=== PATIENT | male | born 1995 | race Caucasian/White ===

== ENCOUNTER 2019-10-14 14:01 | Emergency (ER) | payer OTHER, BC, SELFPAY ==
--- NOTE | 2019-10-14 14:12 | ED.URI ---
HPI - URI/Sore Throat General Chief Complaint: Upper Respiratory Infection Stated Complaint: upper respiratory/SOB/Cough Time Seen by Provider: 10/14/19 14:12 Source: patient and RN notes reviewed History of Present Illness HPI Narrative: Patient is a 24-year-old male that presents the urgent care with complaints of upper respiratory symptoms such as sinus congestion, nonproductive cough, intermittent wheezing and shortness of breath. Patient states it started on Friday and it is worse throughout the night. Patient denies any fever or sore throat. Has been using [place] without much relief. No other acute complaints. No acute distress noted. Patient had a plan of care. Related Data Home Medications Medication Instructions Recorded Confirmed fluoxetine 20 mg tablet 20 mg PO DAILY 07/27/19 10/14/19 Allergies Allergy/AdvReac Type Severity Reaction Status Date / Time No Known Allergies Allergy Verified 10/14/19 14:17 Review of Systems Review of Systems: Narrative: CONSTITUTIONAL: Denies fever, chills, or sweats. EYES: Denies visual changes, redness, or discharge. ENT: Denies rhinorrhea, congestion, sore throat, or otalgia. reports of post-nasal drainage CARDIOVASCULAR: Denies chest pain, palpitations, or edema. RESPIRATORY:reports of cough with wheezes and shortness of breath GASTROINTESTINAL: Denies abdominal pain, nausea, vomiting, or diarrhea. GENITOURINARY: Denies dysuria or hematuria. SKIN: Denies rash or itching. MUSCULOSKELETAL: Denies back pain, joint pain, or myalgia. NEUROLOGIC: Denies headache, numbness, or weakness. All other systems reviewed are negative, except as documented in HPI. PMFSH Social History Social History Smoking status: Current every day smoker Alcohol intake: never Comments At the time of my signature, I reviewed and agree with the nursing past medical, surgical, social, and family history. There is no relevant family history pertinent to the patient complaint. Exam Narrative: Exam Narrative: GENERAL: This is a well-nourished, well-developed patient, in no apparent distress. HEAD: normocephalic, atraumatic. EYES: PERRL. Sclera clear/white. Vision is grossly intact. EARS: External ears normal, auditory canals clear and without drainage, TMs normal without perforation. Hearing grossly intact. NOSE: External nose normal with no obvious nasal discharge, nares without redness, clear rhinorrhea. THROAT: Mucous membranes moist, posterior pharynx clear. Moderate postnasal drainage NECK: Neck supple, non-tender without lymphadenopathy CARDIOVASCULAR: Regular rate and rhythm without murmurs, gallops, or rubs. RESPIRATORY: mild inspiratory wheezes SKIN: warm, intact with no suspicious lesions or rash, good texture and turgor. NEURO: awake, alert, and oriented to person, place and time. There were no obvious focal neurologic abnormalities. EXTREMITIES: No clubbing, cyanosis, or edema. Course Vital Signs Vital signs: Vital Signs Temperature 89.9 F L 10/14/19 14:15 Pulse Rate 50 L 10/14/19 14:15 Respiratory Rate 16 10/14/19 14:15 Blood Pressure 126/55 L 10/14/19 14:15 Pulse Oximetry 100 10/14/19 14:15 Temperature 89.9 F L 10/14/19 14:15 Pulse Rate 50 L 10/14/19 14:15 Respiratory Rate 16 10/14/19 14:15 Blood Pressure 126/55 L 10/14/19 14:15 Pulse Oximetry 100 10/14/19 14:15 Reviewed MDM - URI/Sore Throat MDM Narrative Medical decision making narrative: Advised the patient to complete steroid regimen as prescribed. Use inhaler as needed for wheezing or shortness of breath. Use Tessalon Perles as needed for nonproductive cough. Use Tylenol/ibuprofen as needed. Increase fluids and rest. Use humidifier at night. Follow-up with PCP within 2 to 5 days or for worsening symptoms or failure to improve. Differential Diagnosis Differential diagnosis: Likely upper respiratory infection, otitis media, sinus
[2019-10-14 14:15] VITALS: BP 126/55; PULSE 50; RESP 16; TEMP 37.2; O2SAT 100
== END 2019-10-14 14:33 | disposition home or self-care (01) ==
PROVIDERS: Emergency Provider Nurse Practitioner Family
DX: J40 Bronchitis, not specified as acute or chronic (principal); F17.200 Nicotine dependence, unspecified, uncomplicated
CPT/HCPCS: 99213; G0463

== ENCOUNTER 2020-01-31 12:44 | Outpatient (CLI) | payer OTHER, BC, SELFPAY ==
--- NOTE | ~2020-01-31 | US_ITS ---
EXAMINATION:US venous doppler LE LT INDICATION:Left leg swelling TECHNIQUE: Multiple grayscale, color flow and Doppler images of the left lower extremity deep venous systems were obtained and reviewed. COMPARISON:No prior studies for comparison. FINDINGS: The common femoral, superficial femoral and popliteal veins demonstrate normal respiratory variation, augmentation and compressibility. Color flow is also seen within the posterior tibial, pe roneal, greater saphenous and profunda veins. IMPRESSION: 1: No lower extremity deep venous thrombosis. Reviewed, dictated and finalized at location A.
== END 2020-01-31 12:45 | disposition home or self-care (01) ==
PROVIDERS: PCP Family Medicine; Visit Provider Physician Assistant
DX: M79.89 Other specified soft tissue disorders (principal)
CPT/HCPCS: 93971

== ENCOUNTER 2020-02-07 08:20 | Outpatient (CLI) | payer OTHER, BC, SELFPAY ==
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
== END 2020-02-07 08:21 | disposition home or self-care (01) ==
PROVIDERS: PCP Family Medicine; Visit Provider Physician Assistant
DX: M19.072 Primary osteoarthritis, left ankle and foot (principal); S62.652A Nondisplaced fracture of middle phalanx of right middle finger, initial encounter for closed fracture; X58.XXXA Exposure to other specified factors, initial encounter
CPT/HCPCS: 73140; 73610; 73630

== ENCOUNTER 2020-02-09 17:21 | Outpatient (CLI) | payer OTHER, BC, SELFPAY ==
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
== END 2020-02-09 17:22 | disposition home or self-care (01) ==
PROVIDERS: PCP Family Medicine; Visit Provider Physician Assistant
DX: M79.672 Pain in left foot (principal); M79.89 Other specified soft tissue disorders
CPT/HCPCS: 73700

== ENCOUNTER 2020-03-20 12:35 | Outpatient (CLI) | payer OTHER, BC, SELFPAY ==
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
== END 2020-03-20 12:36 | disposition home or self-care (01) ==
PROVIDERS: PCP Family Medicine; Visit Provider Orthopaedic Surgery
DX: S80.00XA Contusion of unspecified knee, initial encounter (principal); X58.XXXA Exposure to other specified factors, initial encounter
CPT/HCPCS: 73562

== ENCOUNTER 2022-03-14 11:18 | Outpatient (CLI) | payer OTHER, BC, SELFPAY ==
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
== END 2022-03-14 11:19 | disposition home or self-care (01) ==
PROVIDERS: PCP Physician Assistant; Visit Provider Physician Assistant
DX: M25.511 Pain in right shoulder (principal); Z87.81 Personal history of (healed) traumatic fracture
CPT/HCPCS: 73000; 73030

== ENCOUNTER 2022-04-22 12:24 | Emergency (ER) | payer OTHER, BC, SELFPAY ==
--- NOTE | ~2022-04-22 | XR_ITS ---
EXAMINATION: XR hand LT min 3V INDICATION: Left hand pain TECHNIQUE: Three views of the left hand are obtained. COMPARISON: 11/11/2008 FINDINGS: There is no fracture, dislocation, or subluxation. The bones and joint spaces are normal. T here is dorsal soft tissue swelling of the hand overlying the metacarpals. IMPRESSION: 1. Dorsal soft tissue swelling of the hand without acute osseous abnormality. Reviewed, dictated and finalized at location A.
[2022-04-22 12:33] VITALS: BP 134/70; PULSE 59; RESP 18; TEMP 36.5; O2SAT 96
--- NOTE | 2022-04-22 12:41 | ED.UPPEXIN ---
HPI - Extremity Injury (Upper) General Chief Complaint: Extremity Injury, Upper Stated Complaint: lt hand injury Time Seen by Provider: 04/22/22 12:35 Source: patient Mode of arrival: ambulatory Limitations: no limitations History of Present Illness HPI narrative: Mr. Sadler is a 26-year-old male patient presenting to the clinic today with complaints of a left hand injury. He reports that he was helping carrying a washer yesterday and fell and is unsure if the washer fell on top of his hand or if his own body landed on top of his left hand. Reports hand swelling and pain. Related Data Home Medications Medication Instructions Recorded Confirmed dextroamphetamine-amphetamine ER 20 mg PO DAILY 04/22/22 04/22/22 20 mg 24hr capsule,extend release Allergies Allergy/AdvReac Type Severity Reaction Status Date / Time No Known Allergies Allergy Verified 04/22/22 12:37 Review of Systems Review of Systems: Pertinent positives per HPI. Patient denies any fever, chills, rash, headache, visual changes, dizziness, cough, runny nose, sore throat, shortness of breath, chest pain, palpitations, nausea, vomiting, diarrhea, constipation, abdominal pain, or any urinary issues. PMFSH Family History Family History Father Diabetes mellitus Hypertension Asthma Grandparent Hypertension Family history of osteoarthritis Family history of elevated blood lipids Family history of hypothyroidism Other Family history of arthritis Social History Social History Smoking status: Current every day smoker Alcohol intake: current Additional occupation/education comments: [employer] Gender identity (if verbalized by the patient): Male Comments At the time of my signature, I reviewed and agree with the nursing past medical, surgical, social, and family history. There is no relevant family history pertinent to the patient complaint. Exam Narrative: General: Well-developed, well nourished, in no apparent distress Head: Normocephalic, atraumatic. Cardio: Regular rate and rhythm, s1 and s2 normal, no murmur appreciated. Resp: Clear to auscultation bilaterally, no rhonchi, rales, wheezing or rubs. Musculoskeletal: No deformity, moderate soft tissue swelling to the left hand and fingers, tender to palpation over the knuckles and ulnar side of wrist, grossly normal range of motion, muscle strength strong and equal, peripheral pulse strong, no cyanosis, normal gait and station Course Course Emergency Course: Portions of this record may have been created with voice recognition software. Level of Care: Express Care Visit Vital Signs Vital signs: Vital signs reviewed MDM - Extremity Injury (Upper) MDM Narrative Medical decision making narrative: At the time of visit patient is resting comfortably on the exam table. X-ray was negative for any fracture or malalignment of the left hand. I suspect the patient has a soft tissue injury. Supportive measures were discussed and the patient voiced understanding of discharge instructions and agrees to the treatment plan. Differential Diagnosis Differential diagnosis: Likely sprain and strain of wrist, fracture of wrist, fracture of hand and other (Soft tissue injury) Imaging Data Radiologist's impression: [address] [address] XRay Report Signed Patient: Scott Valerio : 1995 MR#: [id number] Age/Sex: 26 / M Acct:[id number] Loc: [facility]? ? ADM Date: 04/22/22Attending Dr: Ordering Physician: Riley Rothman APRN Date of Service: 04/22/22 Procedure(s): XR hand LT min 3V Accession Number(s): [id number] cc: Riley Rothman APRN; UNKNOWN,DOCTOR~ EXAMINATION: XR hand LT min 3V INDICATION: Left hand pain TECHNIQUE: Three views of th
== END 2022-04-22 13:12 | disposition home or self-care (01) ==
PROVIDERS: Emergency Provider Nurse Practitioner Family
DX: S69.92XA Unspecified injury of left wrist, hand and finger(s), initial encounter (principal); W19.XXXA Unspecified fall, initial encounter; F17.200 Nicotine dependence, unspecified, uncomplicated; F90.9 Attention-deficit hyperactivity disorder, unspecified type
CPT/HCPCS: 73130; 99213; G0463

== ENCOUNTER 2023-01-12 19:04 | Emergency (ER) | payer OTHER, BC, SELFPAY ==
[2023-01-12 19:20] VITALS: BP 126/71; PULSE 89; RESP 16; TEMP 36.4; O2SAT 100
[2023-01-12] MEDS: LIDOCAINE HCL 1% LOCAL INJ 2 ML AMPUL 6 ML INFILTRATE (20:01)
--- NOTE | 2023-01-12 20:13 | ED.WOUNDLAC ---
HPI - Wound/Laceration General Chief Complaint: Animal Bite Stated Complaint: Dog Bite Rt Arm Time Seen by Provider: 01/12/23 19:47 Source: patient and RN notes reviewed Mode of arrival: ambulatory Limitations: no limitations History of Present Illness HPI narrative: Patient presents today complaining of a dog bite to his right forearm that was sustained at 630 this evening. He was breaking up 2 of his dogs fighting at home. Dogs are both up-to-date on shots. Patient is up-to-date on his tetanus vaccine. Currently rates his pain 11/01. Related Data Allergies Allergy/AdvReac Type Severity Reaction Status Date / Time No Known Allergies Allergy Verified 01/12/23 19:27 Review of Systems Review of Systems: CONSTITUTIONAL: Denies body aches, fever, chills, or sweats. EYES: Denies visual changes, redness, or discharge. ENT: Denies rhinorrhea, congestion, sore throat, or otalgia. CARDIOVASCULAR: Denies chest pain, palpitations, or edema. RESPIRATORY: Denies cough or dyspnea. GASTROINTESTINAL: Denies abdominal pain, nausea, vomiting, or diarrhea. GENITOURINARY: Denies dysuria or hematuria. SKIN: Denies rash, itching. + dog bite to right forearm MUSCULOSKELETAL: Denies back pain, joint pain, or myalgia. NEUROLOGIC: Denies headache, numbness, tingling, or weakness. PSYCH: Denies depression or anxiety. [facility] Family History Family History Father Diabetes mellitus Hypertension Asthma Grandparent Hypertension Family history of osteoarthritis Family history of elevated blood lipids Family history of hypothyroidism Other Family history of arthritis Social History Social History Smoking status: Current every day smoker Alcohol intake: current Lack of Transportation: No Lack of Food: Never True Current Housing: I Have Housing Concerned About Future Housing: No Difficulty Paying Gas/Electric Bills: No Difficulty Paying for Meds: No Currently Unemployed: No Education: High School Diploma/GED Difficulty w/ Childcare or Family Care: No Additional occupation/education comments: [employer] Gender identity (if verbalized by the patient): Male Comments At time of signature, I have reviewed and agree with nursing past medical, surgical, social and family history unless otherwise noted. Please see nursing chart for further information. There is no relevant family history pertinent to the presenting complaint Exam Narrative: GENERAL: Well-appearing, well-nourished, and in no acute distress. HEAD: Normocephalic, atraumatic. EYES: EOMI. No redness or drainage. Conjunctivae normal. ENT: Mucous membranes pink and moist. NECK: Normal AROM. CHEST: No respiratory distress. EXTREMITIES: 3 cm full-thickness linear laceration that is gaping approximately 1.5 cm to the ulnar aspect of the right forearm. He also has a puncture wound to the volar aspect of his right forearm. Distal sensation intact. Capillary refill normal. Radial pulse normal. Full range of motion of the elbow and wrist. SKIN: Warm, dry, no rash. Capillary refill normal. Normal skin turgor. NEURO: No focal deficits. Alert and oriented x3. Gait steady. PSYCH: Normal affect. No signs of depression or anxiety. Course Course Level of Care: Express Care Visit Vital Signs Vital signs: Vital Signs Temperature 97.6 F 01/12/23 19:20 Pulse Rate 89 01/12/23 19:20 Respiratory Rate 16 01/12/23 19:20 Blood Pressure 126/71 01/12/23 19:20 Pulse Oximetry 100 01/12/23 19:20 Oxygen Delivery Room Air 01/12/23 19:20 Temperature 97.6 F 01/12/23 19:20 Pulse Rate 89 01/12/23 19:20 Respiratory Rate 16 01/12/23 19:20 Blood Pressure 126/71 01/12/23 19:20 Pulse Oximetry 100 01/12/23 19:20 Oxygen Delivery Room Air 01/12/23 19:22 Reviewed. Pt has been instructed
--- NOTE | 2023-01-12 20:17 | PC.NURSE ---
WOUND REPAIRED PER HIGHWAY INSPECTOR, PT TOLERATED WELL. DRESSING IN PLACE. +PMS POST APPLICATION AND REPAIR. PT HAS FULL SENSATION, ROM +PMS.
== END 2023-01-12 20:20 | disposition home or self-care (01) ==
PROVIDERS: Emergency Provider Nurse Practitioner; PCP Family Medicine
DX: S51.811A Laceration without foreign body of right forearm, initial encounter (principal); W54.0XXA Bitten by dog, initial encounter; F17.200 Nicotine dependence, unspecified, uncomplicated
CPT/HCPCS: 12002; 99213; G0463

== ENCOUNTER 2023-02-08 17:24 | Emergency (ER) | payer OTHER, BC, SELFPAY ==
[2023-02-08 17:34] VITALS: BP 130/78; PULSE 76; RESP 18; TEMP 36.8; O2SAT 99
--- NOTE | 2023-02-08 18:02 | ED.SKABFB ---
HPI - Skin/Abscess/Foreign Bdy General Chief complaint: Skin/Abscess/Foreign Body Stated complaint: Fish Hook Stuck In Rt Hand Time Seen by Provider: 02/08/23 17:40 Source: patient Mode of arrival: ambulatory Limitations: no limitations History of Present Illness HPI narrative: 27-year-old male presented for complaint of fishhook in the right ring finger. He states he had about a 4 lb calabrese that started flipping causing the fish hook to embed into his finger. He was unable to get it out himself. He denies bleeding, numbness, tingling or weakness. UTD tetanus. Related Data Allergies Allergy/AdvReac Type Severity Reaction Status Date / Time No Known Allergies Allergy Verified 02/08/23 17:32 Review of Systems Review of Systems: CONSTITUTIONAL: Denies body aches, fever, chills, or sweats. EYES: Denies visual changes, redness, or discharge. ENT: Denies rhinorrhea, congestion CARDIOVASCULAR: Denies chest pain, palpitations, or edema. RESPIRATORY: Denies cough or dyspnea. GASTROINTESTINAL: Denies abdominal pain, nausea, vomiting, or diarrhea. SKIN: per HPI MUSCULOSKELETAL: Denies back pain, joint pain, or myalgia. NEUROLOGIC: Denies headache, numbness, tingling, or weakness. [facility] Past Medical History Medical History (Updated 02/08/23 @ 19:37 by Shona Sarmiento APRN) Attention-deficit hyperactivity disorder, unspecified type Family History Family History Father Diabetes mellitus Hypertension Asthma Grandparent Hypertension Family history of osteoarthritis Family history of elevated blood lipids Family history of hypothyroidism Other Family history of arthritis Social History Social History Smoking status: Current every day smoker Alcohol intake: current Lack of Transportation: No Lack of Food: Never True Current Housing: I Have Housing Concerned About Future Housing: No Difficulty Paying Gas/Electric Bills: No Difficulty Paying for Meds: No Currently Unemployed: No Education: High School Diploma/GED Difficulty w/ Childcare or Family Care: No Additional occupation/education comments: [employer] Gender identity (if verbalized by the patient): Male Comments At time of signature, I have reviewed and agree with nursing past medical, surgical, social and family history unless otherwise noted. Please see nursing chart for further information. There is no relevant family history pertinent to the presenting complaint Exam Narrative: GENERAL: Well-appearing HEAD: Normocephalic, atraumatic. EYES: conjunctivae clear, and EOMI. ENT: Mucous membranes moist. Oropharynx without edema, erythema or lesions. NECK: Supple. No lymphadenopathy CHEST: Clear to auscultation. HEART: Regular rate and rhythm. SKIN: Warm, dry. Fish hook in right 4th digit middle phalanx, no active bleeding or swelling. Endorses pain with manipulation of the hook NEURO: Alert and oriented x3. Course Course Emergency Course: Patient is aware of diagnosis, understands and agrees to treatment plan. Anticipatory guidance given. Patient agrees to follow-up as directed and is aware of reasons to seek care at the emergency department. Portions of this record may have been created with voice recognition software Level of Care: Express Care Visit Vital Signs Vital signs: Vital Signs Temperature 98.2 F 02/08/23 17:34 Pulse Rate 76 02/08/23 17:34 Respiratory Rate 18 02/08/23 17:34 Blood Pressure 130/78 02/08/23 17:34 Pulse Oximetry 99 02/08/23 17:34 Oxygen Delivery Room Air 02/08/23 17:34 Temperature 98.2 F 02/08/23 17:34 Pulse Rate 76 02/08/23 17:34 Respiratory Rate 18 02/08/23 17:34 Blood Pressure 130/78 02/08/23 17:34 Pulse Oximetry 99 02/08/23 17:34 Oxygen Delivery Room Air 02/08/23 17:34 Reviewed Procedures For
== END 2023-02-08 18:27 | disposition home or self-care (01) ==
PROVIDERS: Emergency Provider Nurse Practitioner Family; PCP Family Medicine
DX: S61.244A Puncture wound with foreign body of right ring finger without damage to nail, initial encounter (principal); W45.8XXA Other foreign body or object entering through skin, initial encounter; F17.210 Nicotine dependence, cigarettes, uncomplicated
CPT/HCPCS: 99213; G0463

== ENCOUNTER 2023-07-16 15:48 | Outpatient (CLI) | payer OTHER, BC, SELFPAY ==
--- NOTE | ~2023-07-16 | MR_ITS ---
EXAMINATION: MR shoulder RT wo con DATE: 07/16/2023 16:33 INDICATION: M25.511 - Pain in right shoulder . TECHNIQUE: Magnetic resonance imaging (MRI) of the right shoulder was performed without intravenous c ontrast. Sequences included axial PD-weighted FS FSE, coronal oblique PD-weighted FS FSE and T2-weigh grace FS FSE, and sagittal oblique T2-weighted FS FSE and T1-weighted FSE. COMPARISON: X-ray right shoulder 03/14/2022. FINDINGS: Coracoacromial arch: Mild lateral downsloping of the type II acromion. No os acromiale, acromial tip enthesopathy, or sign ificant inferior osteophytosis. Subacromial space measures 7 mm. No significant subcoracoid narrowing . Rotator cuff: Abnormal longitudinal signal within the muscle belly of the supraspinatus tendon extending along the musculotendinous junction. Infraspinatus, subscapularis, and teres minor are intact. Biceps tendon and glenoid labrum: Long head of biceps tendon is intact. Tear of the posterior inferior quadrant of the glenoid labrum. Posterior capsular thickening. Fluid: Minimal subacromial subdeltoid fluid. Bones/cartilage: Intact IMPRESSION: Longitudinal type tear of the supraspinatus tendon. Tear of the posterior inferior quadrant of the glenoid labrum. Mild osseous outlet compromise with mild subacromial narrowing and minimal subacromial subdeltoid bur sitis. Reviewed, dictated and finalized at location K. MAINTENANCE SUPERVISOR IMPRESSION: Longitudinal type tear of the supraspinatus tendon. Tear of the posterior inferior quadrant of the glenoid labrum. Mild osseous outlet compromise with mild subacromial narrowing and minimal suba cromial subdeltoid bursitis.
== END 2023-07-16 15:49 ==
LOC: MICIMG 15:49
PROVIDERS: PCP Family Medicine; Visit Provider Family Medicine
DX: S46.011A Strain of muscle(s) and tendon(s) of the rotator cuff of right shoulder, initial encounter (principal); S43.431A Superior glenoid labrum lesion of right shoulder, initial encounter; M75.51 Bursitis of right shoulder
CPT/HCPCS: 73221